=== PATIENT | female | born 1975 | race Caucasian/White ===

== ENCOUNTER 2020-05-21 06:46 | Emergency (ER) | payer BC, OTHER ==
--- NOTE | 2020-05-21 07:22 | EDM.PDOC ---
ED HPI GENERAL MEDICAL PROBLEM - General Chief Complaint: Syncope Stated Complaint: [facility] Time Seen by Provider: 05/21/20 07:21 - History of Present Illness INITIAL COMMENTS - FREE TEXT/NARRATIVE: 45-year-old patient brought in by EMS after having chest pressure and a syncopal episode. The 5 AM this morning the patient awoke and had pretty significant chest pressure. This was not associated with breathing difficulties or shortness of breath. The discomfort did not extend into her neck or into her arms or radiate elsewhere. The patient has been under quite a bit of stress at work. And she has had problems with hives she has been taking Benadryl 25 mg about 6 times a day. She does not think she is drinking enough water. Patient awoke with chest pressure this morning and then when she tried to get up she walked for a little bit and then passed out and hit the ground. That she can tell she sustained no injury with the fall. Between her and her she estimates she was out for about 30 seconds. The patient was dizzy after she awoke but she reports no dizziness or unusual sense that she might pass out prior to passing out Patient is treated for hypertension she is on lisinopril and hydroc hlorothiazide. She does not take aspirin. The patient does not smoke no recreational drugs or significant alcohol intake. Patient has a significant family history of stroke but denies coronary artery disease. Patient denies any possibility of . 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 Denies: Fever, Chills HEENT: Reports: No Symptoms Respiratory: Reports: No Symptoms Cardiovascular: Reports: Syncope, Other (See history of present illness) Endocrine: Reports: No Symptoms GI/Abdominal: Reports: No Symptoms : Reports: No Symptoms Musculoskeletal: Reports: No Symptoms Neurological: Reports: Syncope. Denies: Confusion, Dizziness, Headache Psychiatric: Reports: No Symptoms Hematologic/Lymphatic: Reports: No Symptoms Immunologic: Reports: No Symptoms - Physical Exam Exam: See Below Exam Limited By: No Limitations General Appearance: Alert, No Apparent Distress, Other (Vital signs reviewed there is a typo stating pulse ox was 988 during the course of my exam she was 97 to 98%) Eye Exam: Bilateral Eye: Normal Inspection, PERRL Ears: Normal External Exam, Normal Canal, Hearing Grossly Normal, Normal TMs Nose: Normal Inspection, Normal Mucosa, No Blood Throat/Mouth: Normal Inspection, Normal Lips, Normal Teeth, Normal Gums, Normal Oropharynx, Normal Voice, No Airway Compromise Head Exam: Atraumatic, Normocephalic Neck: Normal Inspection, Supple, Non-Tender. No: Lymphadenopathy (L), Lymphadenopathy (R) Respiratory/Chest: No Respiratory Distress, Lungs Clear Cardiovascular: Regular Rate, Rhythm, No Edema, No Murmur GI/Abdominal: Normal Bowel Sounds, Soft, Non-Tender Neuro Exam (Abbreviated): Alert, Oriented, Normal Cognition Back Exam: Normal Inspection. No: CVA Tenderness (L), CVA Tenderness (R), Vertebral Tenderness Skin Exam: Other (Has multiple areas that appear to be hives.) Course - Vital Signs Last Recorded V/S: Last Vital Signs Temp 36.4 C 05/21/20 06:53 Pulse 78 05/21/20 06:53 Resp 20 05/21/20 06:53 BP 128/91 H 05/21/20 06:53 Pulse Ox 988 H 05/21/20 06:53 - Orders/Labs/Meds Orders: Active Orders 24 hr Category Date Time Status EKG 12 Lead [EKG Documentation Completion] [RC] STAT Care 05/21/20 07:15 Active Holter Monitor 48 Hours [RC] .PRN Care 05/21/20 10:21 Active Sodium Chloride 0.9% [Normal Saline] 100 ml Med 05/21/20 09:15 Active IV ASDIRECTED Medication Orders Sodium Chloride (Normal Saline) 100 mls @ 60 mls/hr IV ASDIRECTED MEENAKSHI Last Admin: 05/21/20 09:16 Dose: 60 mls/hr Documented by: YASHIRA Labs: Laboratory Tests 05/21/20 05/21/20 05/21/20 Range/Units 07:53 07:53 08:00 WBC 6.20 (3.98-10.04) K/mm3 RBC 5.08 (3.98-5.22) M/mm3 Hgb 13.3 (11.2-15.7) gm/dl Hct 41.8 (34.1-44.9) % MCV 82.3 (79.4-94.8) fl MCH 26.2 (25.6-32.2) pg MCHC 31.8 L (32.2-35.5) g/dl RDW Std Deviation 42.0 (36.4-46.3) fL Plt Count 276 (182-369) K/mm3 MPV 10.3 (9.4-12.3) fl Neut % (Auto) 74.9 H (34.0-71.1) % Lymph % (Auto) 16.8 L (19.3-51.7) % [place] % (Auto) 7.4 (4.7-12.5) % Eos % (Auto) 0.5 L (0.7-5.8) Baso % (Auto) 0.2 (0.1-1.2) % Neut # (Auto) 4.65 (1.56-6.13) K/mm3 Lymph # (Auto) 1.04 L (1.18-3.74) K/mm3 [place] # (Auto) 0.46 H (0.24-0.36) K/mm3 Eos # (Auto) 0.03 L (0.04-0.36) K/mm3 Baso # (Auto) 0.01 (0.01-0.08) K/mm3 PT 11.5 (9.7-12.0) SECONDS INR 1.08 APTT 26.1 (21.7-31.4) SECONDS D-Dimer, Quantitative 2.16 H (0.19-0.50) mg/L Sodium 142 (136-145) mEq/L Potassium 3.9 (3.5-5.1) mEq/L Chloride 105 (98-107) mEq/L Carbon Dioxide 27 (21-32) mEq/L Anion Gap 13.9 (5-15) BUN 20 H (7-18) mg/dL Creatinine 1.0 (0.55-1.02) mg/dL Est Cr Clr Drug Dosing 63.93 mL/min Estimated GFR (MDRD) 60 (>60) mL/min BUN/Creatinine Ratio 20.0 H (14-18) Glucose 102 (74-106) mg/dL Calcium 9.1 (8.5-10.1) mg/dL Magnesium 1.9 (1.8-2.4) mg/dl Total Bilirubin 0.3 (0.2-1.0) mg/dL AST 16 (15-37) U/L ALT 25 (14-59) U/L Alkaline Phosphatase 55 (46-116) U/L Troponin I < 0.017 (0.00-0.056) ng/mL Total Protein 6.9 (6.4-8.2) g/dl Albumin 3.6 (3.4-5.0) g/dl Globulin 3.3 gm/dL Albumin/Globulin Ratio 1.1 (1-2) Meds: Medications Generic Name Dose Route Start Last Admin Trade Name Freq PRN Reason Stop Dose Admin Sodium Chloride 100 mls @ 60 mls/hr 05/21/20 09:15 05/21/20 09:16 Normal Saline IV 60 mls/hr ASDIRECTED MEENAKSHI Administration Discontinued Medications Generic Name Dose Route Start Last Admin Trade Name Freq PRN Reason Stop Dose Admin Aspirin 324 mg 05/21/20 07:34 05/21/20 07:40 Aspirin PO 05/21/20 07:35 324 mg ONETIME ONE Administration Famotidine 40 mg 05/21/20 07:34 05/21/20 07:42 Pepcid IVPUSH 05/21/20 07:35 40 mg ONETIME ONE Administration Lactated Ringer's 1,000 mls @ 999 mls/hr 05/21/20 09:05 05/21/20 09:24 Ringers, Lactated IV 05/21/20 10:05 999 mls/hr .BOLUS ONE Administration Iopamidol 100 ml 05/21/20 09:13 05/21/20 09:16 Isovue-370 (76%) IVPUSH 05/21/20 09:14 100 ml ONETIME ONE Administration Sodium Chloride 10 ml 05/21/20 09:13 05/21/20 09:16 Saline Flush FLUSH 05/21/20 09:14 10 ml ONETIME ONE Administration - Re-Assessments/Exams Free Text/Narrative Re-Assessment/Exam: 05/21/20 09:03 EKG is nondiagnostic chest x-ray is normal troponin is normal D-dimer came back 2.16. I discussed the implications of this and the patient is in agreement to checking a CTA 05/21/20 10:31 CTA shows no evidence of PE. However, she has a large calcified gallstone, and a hepatic cyst noted. The patient was given famotidine for her hives and these are doing much better they basically are not itching anymore the rash is faded to normal skin color but still some skin irregularities persist. Electrolytes are nondiagnostic and do not need to be addressed at this time. We will start the patient on a 48-hour Holter and have her follow-up with her regular physician within a week. Departure - Departure Time of Disposition: 10:35 Disposition: Home, Self-Care 01 Clinical Impression: Chest pain, Syncope - Discharge Information Forms: ED Department Discharge Additional Instructions: Return to the emergency room with any questions problems or worsening symptoms. Follow-up with your regular physician by the beginning of next week. Discuss further monitoring for potential heart dysrhythmia, or rhythm disorder. Discuss having your gallbladder looked at. Start famotidine, this is the generic for Pepcid, 20 mg twice daily. This will help greatly with your hives. Take a baby aspirin, 81 mg preferably enteric-coated 1 daily. Start a magnesium supplement such as magnesium oxide 400 mg daily. Sepsis Event Note (ED) - Evaluation Sepsis Screening Result: No Definite Risk - Focused Exam Vital Signs: Vital Signs Temp Pulse Resp BP Pulse Ox 05/21/20 06:53 36.4 C 78 20 128/91 H 988 H - My Orders Last 24 Hours: My Active Orders 05/21/20 07:15 EKG 12 Lead [EKG Documentation Completion] [RC] STAT 05/21/20 09:15 Sodium Chloride 0.9% [Normal Saline] 100 ml IV ASDIRECTED 05/21/20 10:21 Holter Monitor 48 Hours [RC] .PRN - Assessment/Plan Last 24 Hours: My Active Orders 05/21/20 07:15 EKG 12 Lead [EKG Documentation Completion] [RC] STAT 05/21/20 09:15 Sodium Chloride 0.9% [Normal Saline] 100 ml IV ASDIRECTED 05/21/20 10:21 Holter Monitor 48 Hours [RC] .PRN
[2020-05-21] MEDS ORDERED: Aspirin 81 MG Tab.Chew PO ONE (07:34)
[2020-05-21] MEDS ORDERED: Famotidine 20 MG/2 ML SDV IVPUSH ONE (07:34)
--- NOTE | 2020-05-21 08:57 | CR ---
Chest: Portable view of the chest was obtained. Comparison: No prior chest imaging is available. Heart size and mediastinum are normal. Lungs are clear with no acute parenchymal change. Minimal scoliosis is noted within the spine. Impression: 1. Nothing acute is appreciated on portable chest x-ray. Diagnostic code #2
[2020-05-21] MEDS ORDERED: Lactated Ringers 1,000 ML IV ONE (09:05)
[2020-05-21] MEDS ORDERED: Iopamidol 755 Mg/ML 100 ML Bottle IVPUSH ONE (09:13)
[2020-05-21] MEDS ORDERED: Sodium Chloride 0.9% 10 ML Syringe FLUSH ONE (09:13)
[2020-05-21] MEDS ORDERED: Sodium Chloride 0.9% 100 ML IV SCH (09:15)
--- NOTE | 2020-05-21 09:53 | CT ---
CT chest Technique: Multiple axial sections were obtained from above the lung apices inferiorly through the lung bases. Intravenous contrast was utilized. Study has been performed as a pulmonary angiogram protocol. Findings: Pulmonary arteries are fairly well opacified. No discrete filling defects are seen to indicate pulmonary embolism. Mediastinum and hilar regions show no adenopathy. Thoracic aorta shows no aneurysm. Minimal superior extending pericardial effusion is seen which is a normal variant. No pericardial thickening is appreciated. Lungs show no acute parenchymal change. No pleural effusions are noted. Upper abdominal structures show a large calcified gallstone within the gallbladder. Small low-density findings are noted within the liver which most likely represent small cysts. Bone window settings were reviewed which show no acute osseous abnormality. Impression: 1. No findings of pulmonary embolism. 2. Large calcified gallstones and liver cyst. 3. No acute abnormality is appreciated. Diagnostic code #2
== END 2020-05-21 10:55 | disposition home or self-care (01) ==
LOC: JD.ED 06:46
DX: R07.89 Other chest pain (principal); R55 Syncope and collapse; I10 Essential (primary) hypertension; Z91.09 Other allergy status, other than to drugs and biological substances; Z79.899 Other long term (current) drug therapy
CPT/HCPCS: 36415; 71045; 71275; 80053; 83735; 84484; 85025; 85379; 85610; 85730; 93005; 93225; 93226; 96374; 99285; A9270; J3490; J7120; Q9967; 99284